=== PATIENT | male | born 1955 | race Caucasian/White ===

== ENCOUNTER 2023-12-28 23:14 | Inpatient (IN) | payer MEDICAID ==
[~2023-12-28] VITALS: Ht 172.7 cm; Wt 86.4 kg
[2023-12-29 00:39] LABS: BASOPHILS % (AUTO) 0.2 % (0.0-2.0); EOSINOPHILS % (AUTO) 0.1 % (0.0-7.0); HEMATOCRIT 31.6 % (36.7-47.1); HEMOGLOBIN 10.4 g/dL (12.5-16.3); LYMPHOCYTES # (AUTO) 0.2 K/uL (0.8-4.8); LYMPHOCYTES % (AUTO) 1.8 % (20.5-51.5); MEAN CORPUSCULAR HEMOGLOBIN 28.8 uug (23.8-33.4); MEAN CORPUSCULAR HGB CONC 33 g/dL (32.5-36.3); MEAN CORPUSCULAR VOLUME 87.5 fL (73.0-96.2); MONOCYTES # (AUTO) 0.2 K/uL (0.1-1.30); MONOCYTES % (AUTO) 1.3 % (0.0-11.0); NEUTROPHILS # (AUTO) 11.1 K/uL (1.8-8.9); NEUTROPHILS % (AUTO) 96.6 % (38.5-71.5); PLATELET COUNT (AUTO) 210 K/uL (152-348); RED BLOOD CELL COUNT(AUTO) 3.62 MIL/uL (4.06-5.63); RED CELL DISTRIBUTION WIDTH 16.7 % (12.1-16.2); WHITE BLOOD COUNT (AUTO) 11.5 K/uL (3.6-10.2)
[2023-12-29 00:40] LABS: DIFFERENTIAL COMMENT 1
[2023-12-29 00:53] LABS: CARBON DIOXIDE 28 mmol/L (21-32); CHLORIDE 96 mmol/L (98-107); CREATININE 5.4 mg/dL (0.6-1.3); GLUCOSE 121 mg/dL (74-106); POTASSIUM 4.8 mmol/L (3.5-5.1); SODIUM SERUM 136 mmol/L (136-145); UREA NITROGEN, BLOOD 51 mg/dL (7-18)
[2023-12-29] MEDS: levoFLOXacin 750 MG/D5W 150 ML PIGGYBACK IV ONE (01:00)
[2023-12-29 01:07] LABS: ALANINE AMINOTRANSFERASE 13 U/L (16-63); ALBUMIN 3.1 g/dL (3.4-5.0); ALKALINE PHOSPHATASE 287 U/L (50-136); ASPARTATE AMINOTRANSFERASE 29 U/L (15-37); BILIRUBIN,DIRECT 0.4 mg/dL (0.0-0.2); BILIRUBIN,TOTAL 0.9 mg/dL (0.2-1.0); TOTAL PROTEIN, SERUM 8.3 g/dL (6.4-8.2)
[2023-12-29 01:32] LABS: CALCIUM 9.3 mg/dL (8.5-10.1)
[2023-12-29] MEDS ORDERED: levoFLOXacin 750MG/D5W 150 ML IV ONE (01:43)
[2023-12-29] MEDS ORDERED: ACETAMINOPHEN ES 500 MG TABLET ONE (01:43)
[2023-12-29] MEDS: ACETAMINOPHEN ES 500 MG TABLET PO ONE (02:08)
[2023-12-29 02:14] LABS: NT-PRO BNP > 25000 pg/mL (0-125)
[2023-12-29] MEDS ORDERED: ENOXAPARIN SODIUM 80 MG/0.8 ML DISP.SYRIN SQ ONE (02:54)
[2023-12-29] MEDS: ENOXAPARIN SODIUM 80 MG/0.8 ML DISP.SYRIN SQ ONE (02:58)
[2023-12-29] MEDS ORDERED: ASPIRIN 81 MG TAB.CHEW ONE (06:24)
[2023-12-29] MEDS: ASPIRIN 81 MG TAB.CHEW PO ONE (06:25)
[2023-12-29] MEDS ORDERED: hydrALAZINE HCL 20 MG/1 ML VIAL IV PRN (06:45)
[2023-12-29] MEDS ORDERED: ALBUTEROL SULFATE 8 GM HFA.AER.AD IH PRN (06:45)
[2023-12-29] MEDS ORDERED: ONDANSETRON 4 MG/2 ML VIAL IV PRN (06:45)
[2023-12-29] MEDS ORDERED: VANCOMYCIN IV 500 MG in IV DEXTROSE 5% 100 ML IV PRN (07:00)
[2023-12-29] MEDS ORDERED: ALBUTEROL SULFATE 2.5 MG/3 ML NEBU NEB PRN (07:00)
[2023-12-29 09:06] VITALS: TEMP 98.9
[2023-12-29 10:15] VITALS: BP 116/56; TEMP 98.9; O2SAT 96
[2023-12-29] MEDS: VANCOMYCIN IV 1,250 MG in IV DEXTROSE 5% 250 ML IV ONE (10:41)
[2023-12-29] MEDS: FLUTICASONE/VILANTEROL 1 EACH BLST.W.DEV INH SCH (10:41)
[2023-12-29] MEDS: HEPARIN SODIUM,PORCINE 5,000 UNITS/ML VIAL SQ SCH (10:43)
[2023-12-29 15:30] VITALS: BP 97/53; TEMP 98.6; O2SAT 98
[2023-12-29 20:00] VITALS: TEMP 98.4
[2023-12-29] MEDS: CEFEPIME HCL 1 G in IV DEXTROSE 5% 50 ML IV SCH (21:22)
[2023-12-30 00:09] VITALS: TEMP 98.8
[2023-12-30 05:09] VITALS: TEMP 98.2
[2023-12-30 07:31] LABS: BASOPHILS % (AUTO) 0.4 % (0.0-2.0); EOSINOPHILS # (AUTO) 0.1 K/uL (0.0-0.7); EOSINOPHILS % (AUTO) 0.6 % (0.0-7.0); HEMATOCRIT 27.8 % (36.7-47.1); HEMOGLOBIN 9.4 g/dL (12.5-16.3); LYMPHOCYTES # (AUTO) 0.8 K/uL (0.8-4.8); LYMPHOCYTES % (AUTO) 5.9 % (20.5-51.5); MEAN CORPUSCULAR HEMOGLOBIN 29.3 uug (23.8-33.4); MEAN CORPUSCULAR HGB CONC 34 g/dL (32.5-36.3); MEAN CORPUSCULAR VOLUME 86.7 fL (73.0-96.2); MONOCYTES # (AUTO) 1.1 K/uL (0.1-1.30); MONOCYTES % (AUTO) 8.4 % (0.0-11.0); NEUTROPHILS % (AUTO) 84.7 % (38.5-71.5); PLATELET COUNT (AUTO) 188 K/uL (152-348); RED BLOOD CELL COUNT(AUTO) 3.21 MIL/uL (4.06-5.63); RED CELL DISTRIBUTION WIDTH 16.5 % (12.1-16.2); WHITE BLOOD COUNT (AUTO) 12.9 K/uL (3.6-10.2)
[2023-12-30 07:43] VITALS: BP 115/63; TEMP 98.4; O2SAT 99
[2023-12-30 07:52] LABS: DIFFERENTIAL COMMENT 1
[2023-12-30 07:56] LABS: ALBUMIN 2.6 g/dL (3.4-5.0); CALCIUM 9.4 mg/dL (8.5-10.1); CREATININE 6.3 mg/dL (0.6-1.3); PHOSPHOROUS 3.5 mg/dL (2.5-4.9); POTASSIUM 5.5 mmol/L (3.5-5.1); TOTAL PROTEIN, SERUM 7.6 g/dL (6.4-8.2)
[2023-12-30 08:01] LABS: THYROID STIMULATING HORMONE 2.299 mIU/mL (0.358-3.740)
[2023-12-30] MEDS: ASPIRIN 81 MG TAB.CHEW PO SCH (08:48)
[2023-12-30 11:58] VITALS: BP 104/65; TEMP 98.4; O2SAT 100
[2023-12-30] MEDS: ALBUMIN HUMAN 25% 100 ML IV PRN (12:25)
[2023-12-30 16:00] VITALS: BP 126/61; TEMP 97.9; O2SAT 100
[2023-12-30] MEDS: VANCOMYCIN IV 500 MG in IV DEXTROSE 5% 100 ML IV ONE (16:41)
[2023-12-30 20:00] VITALS: BP 123/68; TEMP 98; O2SAT 93
[2023-12-30] MEDS: ATORVASTATIN 40 MG TABLET PO SCH (21:02)
[2023-12-31] VITALS: BP 125/72; TEMP 98.6; O2SAT 100
[2023-12-31] MEDS: SODIUM CHLORIDE 3% FOR INHALATION 15 ML NEBU IH ONE (01:09)
[2023-12-31 02:37] VITALS: O2SAT 100
[2023-12-31 04:00] VITALS: BP 123/68; TEMP 98.3; O2SAT 99
[2023-12-31 07:13] VITALS: BP 122/69; TEMP 98.2; O2SAT 100
[2023-12-31] MEDS ORDERED: METOPROLOL SUCCINATE XL 50 MG TAB.SR.24H PO SCH (09:00)
[2023-12-31] MEDS: METOPROLOL SUCCINATE XL 25 MG TAB.SR.24H PO SCH (09:50)
[2023-12-31] MEDS: MORPHINE SULFATE 2 MG/1 ML DISP.SYRIN IVP PRN (10:15)
[2023-12-31 12:11] LABS: HEPATITIS B SURFACE AB, QUAL Reactive (.); HEPATITIS B SURFACE AG Negative (Negative)
[2023-12-31] MEDS ORDERED: CEFTRIAXONE 1 G VIAL IM SCH (14:30)
[2023-12-31] MEDS ORDERED: VANCOMYCIN IV 500 MG in IV DEXTROSE 5% 100 ML IV ONE (16:00)
[2023-12-31] MEDS: CEFTRIAXONE 1 G in IV DEXTROSE 5% 50 ML IV SCH (16:24)
[2023-12-31 20:00] VITALS: BP 120/64; TEMP 98; O2SAT 100
[2024-01-01 06:00] VITALS: BP 117/67; TEMP 98; O2SAT 99
[2024-01-01 12:00] VITALS: O2SAT 99
[2024-01-01 12:31] VITALS: BP 129/73; TEMP 98.4; O2SAT 100
[2024-01-01 17:35] VITALS: BP 145/78; TEMP 98.4; O2SAT 100
[2024-01-01 20:00] VITALS: BP 130/71; TEMP 97.2; O2SAT 100
[2024-01-02 02:01] VITALS: O2SAT 95
[2024-01-02 05:25] VITALS: BP 134/73; TEMP 97.3; O2SAT 100
[2024-01-02 06:49] LABS: BASOPHILS # (AUTO) 0.1 K/UL (0.0-0.2); EOSINOPHILS # (AUTO) 0.2 K/uL (0.0-0.7); EOSINOPHILS % (AUTO) 3.8 % (0.0-7.0); HEMATOCRIT 28.7 % (36.7-47.1); HEMOGLOBIN 9.7 g/dL (12.5-16.3); LYMPHOCYTES # (AUTO) 0.5 K/uL (0.8-4.8); LYMPHOCYTES % (AUTO) 10.4 % (20.5-51.5); MEAN CORPUSCULAR HEMOGLOBIN 29.3 uug (23.8-33.4); MEAN CORPUSCULAR HGB CONC 34 g/dL (32.5-36.3); MEAN CORPUSCULAR VOLUME 86.9 fL (73.0-96.2); MONOCYTES # (AUTO) 0.6 K/uL (0.1-1.30); MONOCYTES % (AUTO) 11.6 % (0.0-11.0); NEUTROPHILS # (AUTO) 3.8 K/uL (1.8-8.9); NEUTROPHILS % (AUTO) 73.2 % (38.5-71.5); PLATELET COUNT (AUTO) 178 K/uL (152-348); RED BLOOD CELL COUNT(AUTO) 3.31 MIL/uL (4.06-5.63); RED CELL DISTRIBUTION WIDTH 16.4 % (12.1-16.2); WHITE BLOOD COUNT (AUTO) 5.2 K/uL (3.6-10.2)
[2024-01-02 06:52] LABS: DIFFERENTIAL COMMENT 1
[2024-01-02 07:01] LABS: CALCIUM 9.8 mg/dL (8.5-10.1); POTASSIUM 5.3 mmol/L (3.5-5.1); VANCOMYCIN,RANDOM 12.5 ug/mL (20.0-30.0)
[2024-01-02 11:36] VITALS: BP 108/72; TEMP 98.4; O2SAT 100
[2024-01-02 12:10] VITALS: O2SAT 96
[2024-01-02 16:00] VITALS: BP 136/76; TEMP 98; O2SAT 100
[2024-01-02] MEDS: ACETAMINOPHEN 325 MG TABLET PO PRN (20:57)
[2024-01-02 23:17] VITALS: O2SAT 97
[2024-01-03 07:08] LABS: CALCIUM 9.4 mg/dL (8.5-10.1); CREATININE 5.9 mg/dL (0.6-1.3); POTASSIUM 5.7 mmol/L (3.5-5.1)
[2024-01-03 13:29] VITALS: O2SAT 97
[2024-01-03 13:50] VITALS: BP 123/63; TEMP 97.3; O2SAT 100
[2024-01-03 16:11] VITALS: BP 123/63; TEMP 97.3; O2SAT 100
[2024-01-03 20:36] VITALS: TEMP 97.6
[2024-01-04 02:29] VITALS: O2SAT 98
[2024-01-04 05:35] VITALS: TEMP 97.9
[2024-01-04 07:35] VITALS: O2SAT 100
[2024-01-04 11:35] VITALS: BP 126/62; TEMP 97.7; O2SAT 100
[2024-01-04 15:40] VITALS: BP 139/72; TEMP 97.4; O2SAT 100
[2024-01-04 17:32] LABS: TOTAL VOLUME,BODY FLUID 2100 mL
[2024-01-04 17:33] LABS: WBC, BODY FLUID 266 /cu. mm (0-200/cu.mm)
[2024-01-04 17:58] LABS: POLYNUCLEAR, BODY FLUID 36 % (0-25%)
[2024-01-04 17:59] LABS: MONOCYTES,BODY FLUID 37 %
[2024-01-04 18:02] LABS: PH, BODY FLUID 7.5
[2024-01-04 18:03] LABS: PROTEIN, BODY FLUID 3.9 G/DL
[2024-01-04 20:05] VITALS: BP 125/59; TEMP 97.6; O2SAT 100
[2024-01-05 04:16] VITALS: O2SAT 97
[2024-01-05 05:48] VITALS: BP 117/45; TEMP 97.8; O2SAT 100
[2024-01-05 06:40] LABS: BASOPHILS # (AUTO) 0.1 K/UL (0.0-0.2); BASOPHILS % (AUTO) 1.1 % (0.0-2.0); EOSINOPHILS # (AUTO) 0.1 K/uL (0.0-0.7); HEMATOCRIT 26.9 % (36.7-47.1); HEMOGLOBIN 9.3 g/dL (12.5-16.3); LYMPHOCYTES # (AUTO) 0.3 K/uL (0.8-4.8); MEAN CORPUSCULAR HEMOGLOBIN 29.5 uug (23.8-33.4); MEAN CORPUSCULAR HGB CONC 34 g/dL (32.5-36.3); MEAN CORPUSCULAR VOLUME 85.8 fL (73.0-96.2); MONOCYTES # (AUTO) 0.5 K/uL (0.1-1.30); MONOCYTES % (AUTO) 8.2 % (0.0-11.0); NEUTROPHILS % (AUTO) 83.7 % (38.5-71.5); PLATELET COUNT (AUTO) 250 K/uL (152-348); RED BLOOD CELL COUNT(AUTO) 3.14 MIL/uL (4.06-5.63); RED CELL DISTRIBUTION WIDTH 16.4 % (12.1-16.2); WHITE BLOOD COUNT (AUTO) 5.9 K/uL (3.6-10.2)
[2024-01-05 06:49] LABS: POTASSIUM 5.2 mmol/L (3.5-5.1)
[2024-01-05 07:24] LABS: DIFFERENTIAL COMMENT 1
[2024-01-05] MEDS ORDERED: LIDOCAINE HCL 1% 20 ML VIAL ONE (09:52)
[2024-01-05] MEDS ORDERED: BUPIVACAINE/EPI PF 0.25% 10 ML VIAL IJ ONE (09:52)
[2024-01-05] MEDS ORDERED: BACITRACIN/POLYMYXIN B OINT 15 GM TUBE ONE (09:52)
[2024-01-05] MEDS ORDERED: FENTANYL CITRATE 100 MCG/2 ML AMPUL ONE (10:17)
[2024-01-05] MEDS ORDERED: VASOPRESSIN 20 UNIT/ML VIAL ONE (10:18)
[2024-01-05 12:30] VITALS: BP 132/69; TEMP 98.9; O2SAT 98
[2024-01-05 16:22] VITALS: BP 114/64; TEMP 97.2; O2SAT 100
[2024-01-05 19:15] VITALS: BP 125/65; TEMP 97.4; O2SAT 100
[2024-01-05 22:51] VITALS: O2SAT 98
[2024-01-06 05:35] VITALS: BP 120/70; TEMP 97.6; O2SAT 100
[2024-01-06 06:52] LABS: BASOPHILS # (AUTO) 0.1 K/UL (0.0-0.2); BASOPHILS % (AUTO) 1.7 % (0.0-2.0); EOSINOPHILS # (AUTO) 0.2 K/uL (0.0-0.7); EOSINOPHILS % (AUTO) 3.7 % (0.0-7.0); HEMATOCRIT 24.7 % (36.7-47.1); HEMOGLOBIN 8.3 g/dL (12.5-16.3); LYMPHOCYTES # (AUTO) 0.5 K/uL (0.8-4.8); LYMPHOCYTES % (AUTO) 10.1 % (20.5-51.5); MEAN CORPUSCULAR HEMOGLOBIN 29.2 uug (23.8-33.4); MEAN CORPUSCULAR HGB CONC 34 g/dL (32.5-36.3); MEAN CORPUSCULAR VOLUME 86.6 fL (73.0-96.2); MONOCYTES # (AUTO) 0.5 K/uL (0.1-1.30); NEUTROPHILS % (AUTO) 75.5 % (38.5-71.5); PLATELET COUNT (AUTO) 243 K/uL (152-348); RED BLOOD CELL COUNT(AUTO) 2.85 MIL/uL (4.06-5.63); RED CELL DISTRIBUTION WIDTH 16.3 % (12.1-16.2); WHITE BLOOD COUNT (AUTO) 5.3 K/uL (3.6-10.2)
[2024-01-06 06:55] LABS: DIFFERENTIAL COMMENT 1
[2024-01-06 07:04] LABS: CALCIUM 8.3 mg/dL (8.5-10.1); CREATININE 5.8 mg/dL (0.6-1.3); PHOSPHOROUS 4.3 mg/dL (2.5-4.9); POTASSIUM 5.3 mmol/L (3.5-5.1)
[2024-01-06 10:55] VITALS: BP 136/73; TEMP 97.5; O2SAT 100
[2024-01-06 15:45] VITALS: O2SAT 98
[2024-01-06 16:22] VITALS: BP 132/81; TEMP 97.6; O2SAT 99
[2024-01-06 20:00] VITALS: BP 147/46; TEMP 98.2; O2SAT 97
[2024-01-06 20:42] VITALS: O2SAT 98
[2024-01-07 05:29] VITALS: BP 144/76; TEMP 97.9; O2SAT 98
[2024-01-07 06:45] LABS: BASOPHILS # (AUTO) 0.1 K/UL (0.0-0.2); BASOPHILS % (AUTO) 1.4 % (0.0-2.0); EOSINOPHILS # (AUTO) 0.1 K/uL (0.0-0.7); EOSINOPHILS % (AUTO) 2.3 % (0.0-7.0); HEMOGLOBIN 8.3 g/dL (12.5-16.3); LYMPHOCYTES # (AUTO) 0.5 K/uL (0.8-4.8); LYMPHOCYTES % (AUTO) 8.5 % (20.5-51.5); MEAN CORPUSCULAR HEMOGLOBIN 29.9 uug (23.8-33.4); MEAN CORPUSCULAR HGB CONC 35 g/dL (32.5-36.3); MEAN CORPUSCULAR VOLUME 86.1 fL (73.0-96.2); MONOCYTES # (AUTO) 0.4 K/uL (0.1-1.30); MONOCYTES % (AUTO) 7.7 % (0.0-11.0); NEUTROPHILS # (AUTO) 4.6 K/uL (1.8-8.9); NEUTROPHILS % (AUTO) 80.1 % (38.5-71.5); PLATELET COUNT (AUTO) 244 K/uL (152-348); RED BLOOD CELL COUNT(AUTO) 2.78 MIL/uL (4.06-5.63); WHITE BLOOD COUNT (AUTO) 5.7 K/uL (3.6-10.2)
[2024-01-07 07:00] LABS: CALCIUM 8.7 mg/dL (8.5-10.1); CREATININE 4.6 mg/dL (0.6-1.3); MAGNESIUM 2.1 mg/dL (1.8-2.4); POTASSIUM 4.7 mmol/L (3.5-5.1)
[2024-01-07 07:26] LABS: DIFFERENTIAL COMMENT 1
[2024-01-07] MEDS ORDERED: METO-356 PO (08:06)
[2024-01-07] MEDS ORDERED: CEFT1VIA15 IV (08:06)
[2024-01-07] MEDS ORDERED: ATOR40TA PO (08:06)
[2024-01-07] MEDS ORDERED: FLUT1BLS INH (08:06)
[2024-01-07] MEDS ORDERED: ASPI81TA31 PO (08:06)
[2024-01-07] MEDS: BACITRACIN ZINC OINT 15 GM TUBE TOP SCH (08:59)
[2024-01-07 12:00] VITALS: BP 129/46; TEMP 97.6; O2SAT 99
== END 2024-01-07 15:30 | disposition home health service (06) | DRG 720 ==
LOC: ER 23:19 → TELE3 12-29 08:22 → MEDSURG3 12-31 09:25
PROVIDERS: ADMIT Internal Medicine; ATTEND Nurse Practitioner Acute Care
PROC: 5A1D70Z Performance of Urinary Filtration, Intermittent, Less than 6 Hours Per Day (ICD-10-PCS; 2023-12-30)
PROC: 0W993ZZ Drainage of Right Pleural Cavity, Percutaneous Approach (ICD-10-PCS; 2024-01-04)
PROC: 0JB40ZZ Excision of Right Neck Subcutaneous Tissue and Fascia, Open Approach (ICD-10-PCS; principal; 2024-01-05)
PROC: 05HB33Z Insertion of Infusion Device into Right Basilic Vein, Percutaneous Approach (ICD-10-PCS; 2024-01-06)
DX: A40.1 Sepsis due to streptococcus, group B (principal); J96.21 Acute and chronic respiratory failure with hypoxia; J69.0 Pneumonitis due to inhalation of food and vomit; R65.20 Severe sepsis without septic shock; I50.23 Acute on chronic systolic (congestive) heart failure; E44.1 Mild protein-calorie malnutrition; J15.3 Pneumonia due to streptococcus, group B; D63.1 Anemia in chronic kidney disease; E88.09 Other disorders of plasma-protein metabolism, not elsewhere classified; J91.8 Pleural effusion in other conditions classified elsewhere; I21.A1 Myocardial infarction type 2; I42.9 Cardiomyopathy, unspecified; N18.6 End stage renal disease; I11.0 Hypertensive heart disease with heart failure; Z99.2 Dependence on renal dialysis; E11.65 Type 2 diabetes mellitus with hyperglycemia; E87.5 Hyperkalemia; Z68.30 Body mass index [BMI] 30.0-30.9, adult; I07.1 Rheumatic tricuspid insufficiency; Z99.81 Dependence on supplemental oxygen; R60.0 Localized edema; E66.9 Obesity, unspecified; R22.1 Localized swelling, mass and lump, neck; R00.0 Tachycardia, unspecified
CPT/HCPCS: 32555; 36415; 70490; 71045; 83615; 83735; 83986; 84100; 84132; 84155; 84295; 84443; 84484; 85025; 85610; 85730; 86706; 87040; 87077; 87340; 90937; 93005; 93307; 94640; 94760; A4649; A9150; G0378; J0692; J0696; J1644; J1650; J1956; J2270; J3010; J3370; J3490; J7040; J7050; P9047